=== PATIENT | female | born 1995 | race African-American/Black ===

== ENCOUNTER 2016-09-10 05:41 | Emergency (ER) | payer BC, OTHER ==
[2016-09-10 05:17] LABS: ASCORBIC ACID (UR NOT ORDER) NEG (NEG); BILIRUBIN, URINE NEGATIVE (NEG); ER URINALYSIS TAT 0 Hrs 10 Mins; KETONE, URINE NEGATIVE (NEG); LEUKOCYTE ESTERASE(NOT OR SMALL (NEG); NITRITE (URINE) NEG (NEG); WBC (NOT ORDERED) (RFLEX) 2 (0-5)
[2016-09-10 06:43] LABS: CHLAMYDIA TRACH PCR NOT DETECTED (NOT DETEC); GC PCR NOT DETECTED (NOT DETECT); SOURCE: FEMALE URINE
== END 2016-09-10 06:03 | disposition home or self-care (01) ==
LOC: ER 05:41
PROVIDERS: Nurse Practitioner
DX: A74.9 Chlamydial infection, unspecified (principal); F17.200 Nicotine dependence, unspecified, uncomplicated
CPT/HCPCS: 81001; 84703; 87086; 87491; 87591; 96372; 99284; A9270-GY; J0696